=== PATIENT | male | born 1965 | race Caucasian/White ===

== ENCOUNTER 2020-08-23 18:58 | Emergency (ER) | payer OTHER ==
[~2020-08-23] VITALS: Ht 190.5 cm; Wt 114.0 kg
[~2020-08-23 18:58] MED LIST: AMOX1TAB61 PO; NYST100054 SWSW
[2020-08-23 20:14] LABS: BILIRUBIN,URINE NEGATIVE (NEG); CLARITY,URINE CLEAR; COLOR,URINE AMBER; NITRITE,URINE NEGATIVE (NEG); PH,URINE 5.5 (<5.0-8.0); PROTEIN,URINE NEGATIVE (NEG-TRACE); UROBILINOGEN,URINE 0.2 mg/dL (0.2 mg/dL)
[2020-08-23 20:24] LABS: BACTERIA,URINE MOD /HPF (0-FEW); RBC,URINE 20-40 /HPF (0-2)
--- NOTE | 2020-08-23 20:47 | ED.ADGEN ---
Past Medical History Past Medical History: Cancer, Hypertension Additional Past Medical Histor: KIDNEY CA Past Surgical History: Other Additional Past Surgical Histo: BILATERAL ROTATOR CUFF, 1/3 LEFT KIDNEY REMOVED Smoking Status: Never Smoker Alcohol Use: None Drug Use: None General Adult EDM: Chief Complaint: URINARY RETENTION HPI: HPI: Patient is a 55-year-old male who presents to the emergency room complaining of difficulty urinating. Patient states that he got a straight cath placed 10 days ago when he was diagnosed with Covid to get a urine sample. He states it felt like sandpaper when it happened. He has been having pain since then, however today started having difficulty with urinating. He states it feels like his urethra is closed. He had to strain to urinate and then he had spraying of multiple areas. He has a lot of burning with urination. Review of Systems: Review of Systems: Complete ROS is negative unless otherwise documented in HPI Allergies: Allergies: Allergies Coded Allergies Type Severity Reaction Last Updated Verified No Known Drug Allergies 08/14/20 No Physical Exam: PE: General: Awake, alert, NAD. Well Nourished, well hydrated. Cooperative HEENT: Atraumatic, EOMI, PERRL, airway patent, moist oral mucosa, bilateral conjunctival hemorrhages with bilateral mild upper and lower eyelid erythema, no drainage from the eyes noted Neck: Supple, trachea midline Respiratory: CTA bilaterally, normal effort, no wheezing/crackles CV: RRR, no murmur, cap refill <2 GI: Soft, nondistended, nontender, no masses : Bilateral testicles appear normal without swelling or tenderness, tip of the penis is erythematous with ulceration and scabbing, meatus is not found MSK: No obvious deformities Skin: Warm, dry, intact Neuro: A&O x3, speech NL, sensory and motor grossly intact, no focal deficits Psych: Normal affect, normal mood, not suicidal or homicidal Current Patient Data: Labs: Laboratory Tests Test 08/23/20 19:53 Urine Collection Type Void Urine Color Leisa Urine Clarity Clear Urine pH 5.5 (<5.0-8.0) Urine Specific Marked Tree >=1.030 (1.000-1.030) Urine Protein Negative mg/dL (NEG-TRACE) Urine Glucose (UA) Negative mg/dL (NEG) Urine Ketones (Stick) Negative mg/dL (NEG) Urine Blood Moderate (NEG) Urine Nitrite Negative (NEG) Urine Bilirubin Negative (NEG) Urine Urobilinogen Dipstick 0.2 mg/dL (0.2 mg/dL) Urine Leukocyte Esterase Negative (NEG) Urine RBC 20-40 /HPF (0-2) Urine WBC 1-4 /HPF (0-4) Urine Squamous Epithelial Cells Mod /LPF Urine Bacteria Mod /HPF (0-FEW) Urine Mucus Marked /LPF Vital Signs: Vital Signs Date Time Temp Pulse Resp B/P (MAP) Pulse Ox O2 Delivery O2 Flow Rate FiO2 08/23/20 22:26 98 97 08/23/20 19:16 98.5 14 134/94 (107) Room Air 98.5 EKG: EKG: [] Heart Score: Risk Factors: Risk Factors: DM, Current or recent (<one month) smoker, HTN, HLP, family history of CAD, obesity. Risk Scores: Score 0 - 3: 2.5% MACE over next 6 weeks - Discharge Home Score 4 - 6: 20.3% MACE over next 6 weeks - Admit for Clinical Observation Score 7 - 10: 72.7% MACE over next 6 weeks - Early Invasive Strategies Radiology/Procedures: Radiology/Procedures: [] Course & Med Decision Making: Course & Med Decision Making Pertinent Labs and Imaging studies reviewed. (See chart for details) Patient is a 55-year-old male who presents to the emergency room complaining of difficulty urinating. Bladder scan is normal at this time. Upon my evaluation patient does appear to have ulceration and scabbing over his meatus which is likely why he feels like he cannot urinate. I discussed the case with the urologist at [facility]. Patient sees Dr. June there and his partner on-call discussed the case with us. He states that this time the only thing to do is to place a suprapubic catheter and to have him follow-up as he will need multiple further steps. I have discussed the case with our hospitalist and interventional radiologist. At this time we are unable do a suprapubic cath here as we do not have the appropriate equipment for this. I have discussed the case with Mamie Ryan who will admit the patient for further care Spike Disclaimer: Spike Disclaimer: This electronic medical record was generated, in whole or in part, using a voice recognition dictation system. Departure Departure Impression: Primary Impression: Acquired stenosis of urethral meatus Additional Impression: Urinary retention Disposition: 02 DC/TRF OTHER SHORT TERM HOS Condition: STABLE Referrals: AVNI CUELLO MD (PCP) Problem Qualifiers SHIRA KUMAR MD Aug 23, 2020 20:47
[2020-08-23 22:26] VITALS: BP 137/96
== END 2020-08-23 23:15 | disposition short-term general hospital (02) ==
LOC: ER 18:58
DX: N35.911 Unspecified urethral stricture, male, meatal (principal); R33.9 Retention of urine, unspecified; I10 Essential (primary) hypertension; Z85.528 Personal history of other malignant neoplasm of kidney; Z98.890 Other specified postprocedural states
CPT/HCPCS: 81001; 99285